=== PATIENT | male | born 1950 | race Caucasian/White ===

== ENCOUNTER 2018-09-23 07:15 | Emergency (ER) | payer OTHER, MEDICARE ==
[~2018-09-23] VITALS: Ht 182.9 cm; Wt 79.4 kg
[2018-09-23 07:22] VITALS: BP_SYST 132
[2018-09-23] MEDS ORDERED: KETOROLAC TROMETHAMINE 60 MG/2 ML VIAL IM ONE (08:30)
[2018-09-23 09:25] VITALS: BP_SYST 132
== END 2018-09-23 09:25 | disposition home or self-care (01) ==
LOC: SED 07:15
DX: S20.212A Contusion of left front wall of thorax, initial encounter (principal); R03.0 Elevated blood-pressure reading, without diagnosis of hypertension; F90.9 Attention-deficit hyperactivity disorder, unspecified type; Z86.19 Personal history of other infectious and parasitic diseases; Z88.2 Allergy status to sulfonamides; Z88.8 Allergy status to other drugs, medicaments and biological substances; Z90.49 Acquired absence of other specified parts of digestive tract; W19.XXXA Unspecified fall, initial encounter; Y93.89 Activity, other specified; Y92.89 Other specified places as the place of occurrence of the external cause; Y99.8 Other external cause status
CPT/HCPCS: 71100; 96372; 99283; J1885